=== PATIENT | male | born 1980 | race African-American/Black ===

== ENCOUNTER 2016-07-25 13:41 | Inpatient (IN) | payer OTHER ==
--- NOTE | ~2016-07-25 | PA ---
Unit #: [id number] #: [id number] Patient: DINA MITCHELL JR [id number] [facility] [address] [place] [address] [id number] I MR#: [id number] NAME: DINA MITCHELL JR ROOM: [facility] Age: 36 Sex: M Admission Date: 07/25/2016 : 1980 Date of Assessment: 07/25/2016 Attending Physician: Patel Florence M.D. Admitting Physician: Patel Florence M.D. Primary Care Physician: Generic Doctor Not In System PSYCHIATRIC ASSESSMENT DATE OF SERVICE 07/25/2016. IDENTIFYING DATA Mr. Mitchell is a 36-year-old single male who is a resident of [place], [place] and is known to us from previous encounter, was self-referred to the hospital. CHIEF COMPLAINT Anger and "I'm having suicidal thoughts." HISTORY OF PRESENT ILLNESS Mr. Mitchell is a 36-year-old male with a long history of chronic mental illness and has been diagnosed and treated for schizoaffective disorder, and has been few times, he comes in with increasing psychosis and agitation and aggression, and then creates lot of disturbance on the unit and at times, he has signed out against medical advice; however, he once again brought himself to the hospital reporting increasing depression, and was seen to be loud, agitated, irritable, and acutely psychotic, significant paranoia, delusional behavior, and also expressing some suicidal thoughts and was seen to be danger to self and therefore recommendation for inpatient level of care for safety and stabilization was made. SUBSTANCE ABUSE HISTORY The patient has history of substance abuse including cocaine, but denies any current regular drug abuse. PAST PSYCHIATRIC HISTORY The patient has had history of multiple inpatient psychiatric hospitalizations including being at [facility] and few other facilities and has history of poor compliance with treatment recommendation as I mentioned earlier that he comes into the hospital and signs out against medical advice, but he came back to the hospital and usually his motivation towards treatment is unclear as he does not cooperate and participate with treatment recommendation and definitely does not follow up with outpatient psychiatric treatment after discharge from the hospital neither does he bother to get his prescription filled, and at least a rapid decompensation; however, review of the medical records indicate that he has been on different psychotic medications and more recently, he was on Zyprexa, which once again review the medical records indicate that he is supposed to be on 10 mg b.i.d., but he has not been compliant with medications. Unit #: [id number] #: [id number] Patient: DINA MITCHELL JR PAST MEDICAL HISTORY The patient's medical history is insignificant. ALLERGIES Aspirin, ibuprofen, and Tylenol. PERSONAL AND SOCIAL HISTORY A 36-year-old male who reports that he is single, unemployed, and essentially homeless and has poor social support system. MENTAL STATUS EXAMINATION Young male who was casually dressed with fair personal hygiene, appears to be in no acute distress or discomfort. He was awake and alert with impaired attention and concentration. His mood was anxious with a congruent affect. His speech was slow and restricted in content. His thought processes were disorganized with some looseness of associations and paranoid ideations, and delusional behavior. His insight and judgment remain significantly impaired. DIAGNOSTIC IMPRESSION Psychiatric: Schizoaffective disorder, bipolar type, most recent episode depressed, recurrent, moderate, with psychosis. Medical: None. Stressors: Moderate psychosocial stressors. TREATMENT PLAN 1. The patient has presented with history of chronic mental illness and has been decompensating and will need inpatient hospitalization for safety and stabilization. We will start him back on his home medications. We will consider switching him on his medication and consider him to be a candidate for long-acting injectable antipsychotic, primarily due to his history of poor compliance with medication leading to rapid decompensation and rehospitalization; however, I am not sure if I will be up for my recommendation for that and I am not sure if he is going to stay hence the hospital long enough for me to complete after that treatment of long-acting and antipsychotic to be initiated after ruling out hypersensitivity molecule of oral medication, however, likely to make effort and was strongly recommend for patient to comply with treatment recommendation. 2. Supportive therapy was provided to the patient. ESTIMATED LENGTH OF STAY 5 to 7 days. ABILITY TO HELP SELF Limited. WILLINGNESS TO HELP SELF The patient appears to be willing to help self. STRENGTHS 1. Communicative. 2. Cooperative. PROBLEMS 1. Chronic dysphoric symptoms. 2. Poor social support system. Unit #: [id number] #: [id number] Patient: DINA MITCHELL DISCHARGE CRITERIA This will be contingent upon the patient's ability to show resolution of his depression, psychosis, agitation, and aggression as well as his ability to stay safe to himself and others, particularly after discharge from the hospital. Dictated by... Marcus Peña/trish TD: 07/26/2016 16:15 JOB #: [id number] PSYCHIATRIC ASSESSMENT Page 1 of 1 X Patel Florence MD X PSYCHIATRIC ASSESSMENT
--- NOTE | ~2016-07-25 | PN ---
Unit #: [id number] #: [id number] Patient: DINA MORALES JR [id number] [facility] [address] [place] [address] [id number] I MR#: [id number] NAME: DINA MORALES JR ROOM: [facility] Age: 36 Sex: M Admission Date: 07/25/2016 : 1980 Attending Physician: Patel Florence M.D. Admitting Physician: Patel Florence M.D. Primary Care Physician: Estrella Doctor Not In System [facility] PROGRESS NOTES DATE July 27, 2016 DISCUSSION Mr. Morales is a 36-year-old male, who was seen today and chart was reviewed and the case was discussed with the staff. He has been anxious, withdrawn, and rather seclusive to himself. Meanwhile, he has been cooperative with the treatment recommendations and he has been taking the medications and tolerating them fairly well with no reported side effects. MENTAL STATUS EXAMINATION Young male, who was casually dressed with fair personal hygiene and appears to be in no acute distress or discomfort. He was awake and alert with impaired attention and concentration. His mood is anxious with a congruent affect. His speech is slow and restricted in content. His thought processes are disorganized with some looseness of associations. His insight and judgment remain significantly impaired. TREATMENT PLAN 1. We will continue him on his current medications and treatment protocol, and will discontinue the medication as he is refusing to take that particular medication and he is reporting that it don't work and will switch him to Abilify. 2. We will continue to followup. Dictated by... Marcus Peña/marsha TD: 07/28/2016 10:53 JOB #: [id number] Unit #: [id number] #: [id number] Patient: DINA MORALES JR [facility] PROGRESS NOTES Page 1 of 1 X Patel Florence MD PROGRESS NOTE
--- NOTE | ~2016-07-25 | PN ---
Unit #: [id number] #: [id number] Patient: DINA MORALES JR [id number] [facility] [address] [place] [address] [id number] I MR#: [id number] NAME: DINA MORALES JR ROOM: [facility] Age: 36 Sex: M Admission Date: 07/25/2016 : 1980 Attending Physician: Patel Florence M.D. Admitting Physician: Patel Florence M.D. Primary Care Physician: Generic Doctor Not In System [facility] PROGRESS NOTES DATE 07/26/2016 DISCUSSION Mr. Morales is a 36-year-old male who was seen today and chart was reviewed and case was discussed with the staff. He was seen to be anxious, withdrawn and rather seclusive to himself with blunted affect and minimal interaction and has been exhibiting some depressive symptoms. Meanwhile, he has been cooperative with treatment recommendations and has been taking medications and tolerating them fairly well. MENTAL STATUS EXAMINATION Young male who was casually dressed with fair personal hygiene and appears to be in no acute distress or discomfort. He was awake and alert with impaired attention and concentration. His mood was anxious with congruent affect. His speech is slow and tangential. His thought processes were disorganized with some looseness of association, thought blocking and paranoid ideations. His insight and judgement remains significantly impaired. TREATMENT PLAN 1. Will continue him on his current medications and treatment protocol. Will monitor his response and make further adjustments as needed. 2. Will continue to follow up. Dictated by... Marcus Peña/madyson TD: 07/27/2016 18:38 JOB #: [id number] Unit #: [id number] #: [id number] Patient: DINA MORALES JR [facility] PROGRESS NOTES Page 1 of 1 X Patel Florence MD PROGRESS NOTE
--- NOTE | ~2016-07-25 | CO ---
Unit #: [id number] #: [id number] Patient: DINA MITCHELL JR [id number] [place] [address] [id number] I MR#: [id number] NAME: DINA MITCHELL JR ROOM: [facility] Age: 36 Sex: M Admission Date: 07/25/2016 : 1980 Attending Physician: Patel Florence M.D. Primary Care Physician: Estrella Doctor Not In System Consultation Date: 07/25/2016 CONSULTATION REPORT SUBJECTIVE Dnia is a 36-year-old who reports that he had a TB skin test sometime prior to this admission. The test was read by appropriate medical concierge and was read as negative. At the time of admission, the admitting nurse noticed a red raised area on his forearm that coincided with the TB skin test that he reported. She was concerned that this may be positive now. At time of admission, it would have been 5 to 6 days since he had the TB skin test and he did report that the area itched somewhat and he scratched it. OBJECTIVE GENERAL: Alert, well nourished, in no apparent distress. VITAL SIGNS: Blood pressure 120/70, heart rate 80, respirations 16, temperature 98.6. SKIN: Warm and dry without rash or lesion. He has approximately quarter-sized raised area on his forearm. The area is not warm or tender. ASSESSMENT Secondary irritation where the patient has scratched after a TB skin test that was read negative at the appropriate time. PLAN No Rx. Dictated by... Beryl Gunn P.A.-C. for Marcus Villalobos/trish TD: 07/28/2016 00:49 JOB #: [id number] Unit #: [id number] #: [id number] Patient: DINA MITCHELL JR CONSULTATION REPORT Page 1 of 1 X Beryl Gunn CONSULTATION REPORT
--- NOTE | ~2016-07-25 | HP ---
Unit #: [id number] #: [id number] Patient: DINA MITCHELL JR [id number] [place] [address] [id number] I MR#: [id number] NAME: DINA MITCHELL JR ROOM: [facility] Age: 36 Sex: M Admission Date: 07/25/2016 : 1980 Attending Physician: Patel Florence M.D. Admitting Physician: Patel Florence M.D. Primary Care Physician: Generic Doctor Not In System HISTORY AND PHYSICAL HISTORY OF PRESENT ILLNESS Dina is a 36 year old admitted to [address] [place] [address] after reporting auditory hallucinations. He says "I think I'm having a nervous breakdown." PAST MEDICAL HISTORY Nothing significant. PAST SURGICAL HISTORY Nothing reported. ALLERGIES Aspirin, Tylenol, ibuprofen. SOCIAL HISTORY Smokes less than one-half pack per day. Denies alcohol. Admits to using marijuana "occasionally." FAMILY HISTORY Medically noncontributory. REVIEW OF SYSTEMS CONSTITUTIONAL: No fever or chills. HEENT: Denies any sore throat, ear pain or runny nose. CARDIOVASCULAR: Denies chest pain, irregular heart rhythm or palpitations. CHEST: Denies shortness of breath or cough. No hemoptysis. GASTROINTESTINAL: Denies nausea, vomiting, diarrhea or chronic constipation. ENDOCRINE: Denies history of increased thirst or urination. No recent significant weight loss or gain. GENITOURINARY: Denies dysuria, frequency, or hematuria. SKIN: Denies any rashes. HEMATOLOGIC: Denies history of increased bleeding or bruising. MUSCULOSKELETAL: Denies any hot, swollen joints. No generalized muscle pain. NEUROLOGIC: Denies problems with vision or speech. No frequent, severe headaches. No numbness, tingling or weakness in any extremities. Denies loss of bladder or bowel control. CURRENT MEDICATIONS 1. Risperdal 1 mg b.i.d. 2. Celexa 20 mg q. day. 3. Proventil inhaler p.r.n. 4. Milk of Magnesia p.r.n. Unit #: [id number] #: [id number] Patient: DINA MITCHELL JR 5. Maalox p.r.n. 6. Zyprexa 10 mg b.i.d. PHYSICAL EXAMINATION GENERAL: Alert, well nourished. No apparent distress. VITAL SIGNS: Blood pressure 120/70, heart rate 82, respirations 16, and temperature 98.6. WEIGHT: 151. HEIGHT: 5 feet 9 inches. SKIN: Warm and dry without rash or lesion. HEENT: Normocephalic. TMs not viewed. Oral and nasal passages clear. Conjunctivae clear. PERRLA. EOMs intact. NECK: Supple without lymphadenopathy or thyromegaly. HEART: Regular rate and rhythm without murmur. LUNGS: Clear. ABDOMEN: Soft, nontender. : Not done. EXTREMITIES: No evidence of cyanosis, clubbing or edema. Moves all without focal deficit. NEUROLOGICAL: Grossly within normal limits. Cranial Nerves: II: Visual mejia are intact. III, IV AND : Extraocular movements are intact. Pupils are equal, round and reactive to light. V: Facial sensation is grossly normal. VII: Facial movements and expression are normal. VIII: Auditory acuity grossly intact. IX, X: Uvula is midline. Phonation is normal. XI: Patient shrugs shoulders and turns head normally. XII: Tongue protrudes in the midline. Sensory and Motor Function: Sensory and motor sensation is grossly normal. Motor: moves all extremities well. Coordination: Gait is normal. Deep Tendon Reflexes: Intact. IMPRESSION Psychiatric admission. RECOMMENDATIONS PSYCHIATRIC: Per psychiatrist. MEDICAL: I see no contraindication to participate in this facility's activities. MEDICAL PROGNOSIS Good. MEDICAL CONDITION Stable. Dictated by... Beryl Gunn P.A.-C. for Marcus Villalobso/xochitl TD: 07/26/2016 10:52 JOB #: [id number] Unit #: [id number] #: [id number] Patient: DINA MITCHELL JR HISTORY AND PHYSICAL Page 1 of 1 X Beryl Gunn HISTORY AND PHYSICAL
--- NOTE | ~2016-07-25 | DS ---
Unit #: [id number] #: [id number] Patient: [facility] MITCHE[facility] JR [id number] [facility] [address] [place] [address] [id number] I MR#: [id number] NAME: DINA MITCHELL JR ROOM: [facility] Age: 36 Sex: M Admission Date: 07/25/2016 : 1980 Discharge Date: 07/29/2016 Attending Physician: Patel Florence M.D. Primary Care Physician: Generic Doctor Not In System DISCHARGE SUMMARY IDENTIFYING DATA Mr. Mitchell is a 36-year-old single male who is a resident of [place], [place] and is known to us from previous encounter, was self-referred to the hospital. DISCHARGE DIAGNOSES Psychiatric: Schizoaffective disorder, bipolar type, most recent episode depressed, recurrent, moderate, with psychosis. Medical: None. Stressors: Moderate psychosocial stressors. HISTORY OF PRESENT ILLNESS Please see initial psychiatric evaluation for details. PAST PSYCHIATRIC HISTORY Please see initial psychiatric evaluation for details. PAST MEDICAL HISTORY Please see initial psychiatric evaluation for details. HOSPITAL COURSE The patient was admitted to the adult psychiatric unit at [facility] and was oriented to the hospital environment. Routine p.r.n. medications were initiated, and he was started back on his home medications including his Celexa and Zyprexa and was closely monitored. He was initially seen to be very withdrawn, and rather seclusive to himself and exhibiting some acute psychosis; however, at this time he did not show any agitation or aggression, which has been hallmark of his previous presentation with seems to cooperative with treatment recommendation and was taking the medications regularly, and was tolerating them fairly well and was able to show a decent therapeutic response and as such, it was decided that he will be discharged home and will continue treatment on an outpatient basis. DISCHARGE MEDICATIONS Celexa 20 mg a day for depression and Zyprexa 10 mg b.i.d. for psychosis. DISCHARGE CONDITION Stable. PROGNOSIS Fair. Unit #: [id number] #: [id number] Patient: DINA MITCHELL JR Dictated by... Marcus Peña/rosa iselal TD: 07/29/2016 16:55 JOB #: [id number] DISCHARGE SUMMARY Page 1 of 1 X Patel Florence MD DISCHARGE SUMMARY
--- NOTE | ~2016-07-25 | PN ---
Unit #: [id number] #: [id number] Patient: DINA MORALES JR [id number] [facility] [address] [place] [address] [id number] I MR#: [id number] NAME: DINA MORALES JR ROOM: [facility] Age: 36 Sex: M Admission Date: 07/25/2016 : 1980 Attending Physician: Patel Florence M.D. Admitting Physician: Patel Florence M.D. Primary Care Physician: Generic Doctor Not In System [facility] PROGRESS NOTES DATE July 28, 2016 DISCUSSION Mr. Morales is a 36-year-old male, who was seen today and chart was reviewed and the case was discussed with the staff. He has been anxious, withdrawn, and wants to get back on his Zyprexa. Meanwhile, he has been staying calm and hasn't had any agitation or aggression. MENTAL STATUS EXAMINATION Young male, who was casually dressed with fair personal hygiene and appears to be in no acute distress or discomfort. He was awake and alert on interaction with intact orientation. His mood is anxious with a congruent affect. His speech is slow and restricted in content. He denies any suicidal or homicidal ideations. His insight and judgment remain significantly impaired. TREATMENT PLAN 1. We will continue him on his current medications and treatment protocol, and will monitor his response to the medications, and make further adjustments as needed. 2. We will continue to followup. Dictated by... Marcus Peña/marsha TD: 07/28/2016 11:01 JOB #: [id number] Unit #: [id number] #: [id number] Patient: DINA MORALES JR [facility] PROGRESS NOTES Page 1 of 1 X Patel Florence MD X PROGRESS NOTE
[2016-07-28 10:41] LABS: URINE APPEARANCE CLEAR; URINE BILIRUBIN NEG (NEG); URINE BLOOD NEG (NEG); URINE COLOR YELLOW; URINE GLUCOSE NEG (NEG); URINE KETONE NEG (NEG); URINE LEUKOCYTE ESTERASE NEG (NEG); URINE NITRATE NEG (NEG); URINE PROTEIN NEG (NEG); URINE SPECIFIC GRAVITY 1.022 (1.003-1.035); URINE UROBILINOGEN 0.2 MG/DL (NEG)
[2016-07-28 11:00] LABS: AMPHETAMINE NEG (NEG); BARBITURATES NEG (NEG); BENZODIAZEPINES NEG (NEG); COCAINE NEG (NEG); MARIJUANA POS (NEG); OPIATES NEG (NEG); TRICYCLIC ANTIDEPRESSANTS NEG (NEG); U METHADONE NEG (NEG)
== END 2016-07-29 10:45 | disposition home or self-care (01) | DRG 885 ==
LOC: P2L 13:41
PROVIDERS: Psychiatry & Neurology Psychiatry
DX: F25.0 Schizoaffective disorder, bipolar type (principal); F31.32 Bipolar disorder, current episode depressed, moderate; F17.210 Nicotine dependence, cigarettes, uncomplicated
CPT/HCPCS: 80307; 81003

== ENCOUNTER 2016-08-12 18:11 | Inpatient (IN) | payer OTHER ==
--- NOTE | ~2016-08-12 | PN ---
Unit #: [id number] #: [id number] Patient: DINA MORALES JR [id number] [facility] [address] [place] [address] [id number] I MR#: [id number] NAME: DINA MORALES JR ROOM: [facility] Age: 36 Sex: M Admission Date: 08/12/2016 : 1980 Attending Physician: Patel Florence M.D. Admitting Physician: Patel Florence M.D. Primary Care Physician: Generic Doctor Not In System [facility] PROGRESS NOTES DATE 08/18/2016 DISCUSSION Mr. Morales is a 36-year-old male who was seen today and chart was reviewed and case was discussed with the staff. He has been doing fairly well and has been reporting improvement in depression and anxiety and he has been cooperative with treatment recommendations and has been taking the medications and tolerating them fairly well. MENTAL STATUS EXAMINATION Young male who was casually dressed with fair personal hygiene and appears to be in no acute distress or discomfort. He was awake and alert on interaction with intact orientation. His mood was anxious with congruent affect. His speech is slow and goal-directed. He denies any suicidal or homicidal ideations and also denies any auditory or visual hallucinations. His insight and judgement remains slightly impaired. TREATMENT PLAN Will continue on current medications and treatment protocol. Will monitor his response and make further adjustments as needed. Dictated by... Marcus Peña/madyson TD: 08/18/2016 18:18 JOB #: [id number] Unit #: [id number] #: [id number] Patient: DINA MORALES JR [facility] PROGRESS NOTES Page 1 of 1 X Patel Florence MD X PROGRESS NOTE
--- NOTE | ~2016-08-12 | PN ---
Unit #: [id number] #: [id number] Patient: DINA MORALES JR [id number] [facility] [address] [place] [address] [id number] I MR#: [id number] NAME: DINA MORALES JR ROOM: [facility] Age: 36 Sex: M Admission Date: 08/12/2016 : 1980 Attending Physician: Patel Florence M.D. Admitting Physician: Patel Florence M.D. Primary Care Physician: Estrella Doctor Not In System [facility] PROGRESS NOTES DATE 08/17/2016 DISCUSSION Mr. Morales is a 36-year-old male who was seen today and chart was reviewed and case was discussed with the staff. He has been anxious, agitated, irritable, impulsive and oppositional. Meanwhile, he has been compliant with treatment recommendations and has been taking medications and tolerating them fairly well with no reported side effects. MENTAL STATUS EXAMINATION Young male who was casually dressed with fair personal hygiene and appears to be in no acute distress or discomfort. He was awake and alert on interaction with intact orientation. His mood was anxious and depressed with congruent affect. He denies any suicidal or homicidal ideations. His insight and judgement remains slightly impaired. TREATMENT PLAN 1. Will continue his current medications and treatment protocol. Will monitor his response to medications and make further adjustments as needed. 2. Will continue to follow up. Dictated by... Patel Florence M.D. IAA/madyson TD: 08/17/2016 17:27 JOB #: [id number] Unit #: [id number] #: [id number] Patient: DNIA MORALES JR [facility] PROGRESS NOTES Page 1 of 1 X Patel Florence MD PROGRESS NOTE
--- NOTE | ~2016-08-12 | PA ---
Unit #: [id number] #: [id number] Patient: DINA MITCHELL JR [id number] [facility] [address] [place] [address] [id number] I MR#: [id number] NAME: DINA MITCHELL JR ROOM: P121 Age: 36 Sex: M Admission Date: 08/12/2016 : 1980 Date of Assessment: 08/13/2016 Attending Physician: Patel Florence M.D. Admitting Physician: Patel Florence M.D. Primary Care Physician: Generic Doctor Not In System PSYCHIATRIC ASSESSMENT IDENTIFYING INFORMATION The patient is a 36-year-old male admitted to the [address] [place] [address] unit under the care of Dr. Florence. He is seen today in coverage and Dr. Florence will assume care tomorrow. CHIEF COMPLAINT None given INFORMANT The patient and chart. RELIABILITY Fair. HISTORY OF PRESENT ILLNESS The patient is a 36-year-old male last discharged from this facility on 07/29/2016. The patient carries a diagnosis of chronic paranoid schizophrenia. He claims that he has been compliant with prescribed medications. The patient reports today that he has been compliant with medications. He required a p.r.n. dose of Haldol, Ativan and Benadryl yesterday. The patient was reporting recurrence of auditory hallucinations. He terminates today's interview by rising from his bed and walking into the bathroom. He was reporting positive auditory hallucinations and suicidal ideation at the time of admission. For a more complete history of present illness please refer to previous dictated notes. PAST PSYCHIATRIC HISTORY Reviewed no changes. PAST MEDICAL HISTORY Reviewed no changes. MEDICATIONS 1. Celexa 2. Zyprexa 3. Albuterol ALLERGIES Acetaminophen, ibuprofen, aspirin. FAMILY HISTORY Reviewed no changes Unit #: [id number] #: [id number] Patient: DINA MITCHELL JR SOCIAL HISTORY Reviewed no changes MENTAL STATUS EXAMINATION At this time reveals the patient to be a well-developed, well-nourished male, appearing his stated age. He is in no apparent physical distress at the time of examination. He is awake, alert, and oriented in all spheres. His mood is somewhat irritable. His affect constricted. Speech is generally relevant and coherent. There are no gross deficits in memory or cognition noted. Intelligence is judged to be in the average range based on fund of knowledge. The patient is generally cooperative during interview. He continues to endorse positive suicidal ideation. When seen today he denies homicidal ideation. He reports positive auditory hallucinations. His judgement and insight appear to be somewhat impaired. ASSETS AND LIABILITIES ASSETS: To be assessed. LIABILITIES: Poor compliance of treatment. DIAGNOSTIC IMPRESSION Schizoaffective disorder, asthma. PSYCHIATRIC PLAN/TREATMENT GOALS The patient remains hospitalized for safety and stabilization. We will restart previously prescribed medications and Dr. Florence will assume care of the patient on 08/14/2016. Dictated by... Jeremy Chávez M.D. CARLEE/daa TD: 08/14/2016 04:15 JOB #: [id number] PSYCHIATRIC ASSESSMENT Page 1 of 1 X Jeremy Chávez MD X PSYCHIATRIC ASSESSMENT
--- NOTE | ~2016-08-12 | PN ---
Unit #: [id number] #: [id number] Patient: DINA MORALES JR [id number] [facility] [address] [place] [address] [id number] I MR#: [id number] NAME: DINA MORALES JR ROOM: P121 Age: 36 Sex: M Admission Date: 08/12/2016 : 1980 Attending Physician: Patel Florence M.D. Admitting Physician: Patel Florence M.D. Primary Care Physician: Estrella Doctor Not In System [facility] PROGRESS NOTES DATE OF SERVICE: 08/15/2016 SUBJECTIVE Mr. Morales is a 36-year-old male, who was seen today and chart was reviewed, and case was discussed with the staff. He has been anxious, withdrawn, and rather seclusive to himself. Meanwhile, he has been cooperative with treatment recommendations and has been taking the medications and tolerating them fairly well with no reported side effects. MENTAL STATUS EXAMINATION Young male, who was casually dressed with fair personal hygiene, appears to be in no acute distress or discomfort. He was awake and alert on interaction with intact orientation. His mood was anxious and depressed with a congruent affect. He denies any suicidal or homicidal ideations. His thought processes were disorganized with some looseness of associations. His insight and judgment remain significantly impaired. TREATMENT PLAN 1. We will continue his current medications and treatment protocol. We will monitor his response to medications and make further adjustments as needed. 2. We will continue to follow up. Dictated by... Marcus Peña/trish TD: 08/16/2016 02:25 JOB #: [id number] Unit #: [id number] #: [id number] Patient: DINA MORALES JR [facility] PROGRESS NOTES Page 1 of 1 X Patel Florence MD PROGRESS NOTE
--- NOTE | ~2016-08-12 | HP ---
Unit #: [id number] #: [id number] Patient: DINA MITCHELL JR [id number] [facility] [address] [place] [address] [id number] I MR#: [id number] NAME: DINA MITCHELL JR ROOM: P121 Age: 36 Sex: M Admission Date: 08/12/2016 : 1980 Attending Physician: Patel Florence M.D. Admitting Physician: Patel Florence M.D. Primary Care Physician: Generic Doctor Not In System HISTORY AND PHYSICAL The patient is a 36-year-old male admitted to [address] [place] [address] on 08/12/2016 for psychosis. The patient had a recent admission on July 25, 2016 where a full history and physical was completed. That history and physical has been reviewed. No changes need to be made. Dictated by... Khanh Sainz/ada TD: 08/14/2016 00:00 JOB #: [id number] HISTORY AND PHYSICAL Page 1 of 1 X JJ DE LA TORRE APRN HISTORY AND PHYSICAL
--- NOTE | ~2016-08-12 | PN ---
Unit #: [id number] #: [id number] Patient: DINA MITCHELL JR [id number] [facility] [address] [place] [address] [id number] I MR#: [id number] NAME: DINA MITCHELL JR ROOM: P121 Age: 36 Sex: M Admission Date: 08/12/2016 : 1980 Attending Physician: Patel Florenec M.D. Admitting Physician: Patel Florence M.D. Primary Care Physician: Estrella Doctor Not In System [facility] PROGRESS NOTES DATE OF SERVICE: 08/14/2016 SUBJECTIVE Mr. Atwood is a 36-year-old male, who was seen today and chart was reviewed, and case was discussed with the staff. He has been anxious, withdrawn, and rather seclusive to himself. Meanwhile, he has been cooperative with treatment recommendations and has been taking medications and tolerating them fairly well with no reported side effects. MENTAL STATUS EXAMINATION Young male, who was casually dressed with fair personal hygiene, appears to be in no acute distress or discomfort. He was awake, alert on interaction with intact orientation. His mood was anxious with a congruent affect. He reports increased suicidal ideation, but denies any homicidal ideation. His insight and judgment remain significantly impaired. TREATMENT PLAN 1. We will continue the current medications and treatment protocol. We will monitor his response to medications and make further adjustments as needed. 2. We will continue to follow up. Dictated by... Marcus Peña/trish TD: 08/15/2016 05:14 JOB #: [id number] [facility] PROGRESS NOTES Page 1 of 1 X Patel Florence MD PROGRESS NOTE
--- NOTE | ~2016-08-12 | PN ---
Unit #: [id number] #: [id number] Patient: DINA MORALES JR [id number] [facility] [address] [place] [address] [id number] I MR#: [id number] NAME: DINA MORALES JR ROOM: P121 Age: 36 Sex: M Admission Date: 08/12/2016 : 1980 Attending Physician: Patel Florence M.D. Admitting Physician: Patel Florence M.D. Primary Care Physician: Estrella Doctor Not In System [facility] PROGRESS NOTES DATE 08/16/2016 DISCUSSION Mr. Morales is a 36-year-old, male who was seen today and chart was reviewed and case was discussed with the staff. He remains anxious, withdrawn though rather seclusive to himself. meanwhile, he has been cooperative with treatment recommendations. He has been taking the medication and tolerating them fairly well with no reported side effects. MENTAL STATUS EXAM Young male who was casually dressed with fair personal hygiene, appears to be in no acute distress or discomfort. He was awake and alert on interaction with intact orientation. His mood was anxious and depressed with congruent affect. His speech was slow and restricted in content. He reports having suicidal ideation but denies any homicidal ideation. His thought processes were disorganized with some looseness of associations and paranoid ideations. His insight and judgement remains slightly impaired. TREATMENT PLAN 1. We will continue him on his current medications and treatment protocol. We will monitor his response to the medications and make further adjustments as needed. 2. We will continue to follow up. Dictated by... Marcus Peña/ada TD: 08/17/2016 04:39 JOB #: [id number] Unit #: [id number] #: [id number] Patient: DINA MORALES JR [facility] PROGRESS NOTES Page 1 of 1 X Patel Florence MD PROGRESS NOTE
--- NOTE | ~2016-08-12 | DS ---
Unit #: [id number] #: [id number] Patient: DINA MITCHELL JR [id number] [facility] [address] [place] [address] [id number] I MR#: [id number] NAME: DINA MITCHELL JR ROOM: P121 Age: 36 Sex: M Admission Date: 08/12/2016 : 1980 Discharge Date: 08/19/2016 Attending Physician: Patel Florence M.D. Primary Care Physician: Generic Doctor Not In System DISCHARGE SUMMARY IDENTIFYING DATA Mr. Mitchell is a 36-year-old single male who is known to us from previous encounter and was self-referred to the hospital. DISCHARGE DIAGNOSES Psychiatric: Schizoaffective disorder, bipolar type, most recent episode depressed, recurrent, moderate, with psychosis; methamphetamine abuse, moderate. Medical: None. Stressors: Moderate psychosocial stressors. HISTORY OF PRESENT ILLNESS Please see initial psychiatric evaluation for details. PAST PSYCHIATRIC HISTORY Please see initial psychiatric evaluation for details. PAST MEDICAL HISTORY Please see initial psychiatric evaluation for details. HOSPITAL COURSE The patient was admitted to the adult psychiatric unit at [facility] and was oriented to the hospital environment. Routine p.r.n. medications were initiated, and he was started back on his home medications including his Zyprexa and Celexa; however, he was refusing to take Celexa stating that he is not depressed and was taking Zyprexa and was very withdrawn and seclusive to himself; however, he was cooperative with treatment recommendation. In comparison to the last few hospitalization, he did not show any agitation or aggression, hostility, and was rather very cooperative with treatment recommendation and was able to show a decent therapeutic response and was willing to continue treatment and stated that he has a court appointment on Sunday and therefore, he wanted to leave over the weekend and was denying any suicidal ideations, intent, or plan and was not seen to be danger to self or anyone else, and as such, it was decided that he will be discharged home and will continue treatment on an outpatient basis. DISCHARGE MEDICATIONS Zyprexa 10 mg b.i.d. for mood disorder. DISCHARGE CONDITION Stable. PROGNOSIS Fair. Unit #: [id number] #: [id number] Patient: DINA MITCHELL JR Dictated by... Marcus Peña/trish TD: 08/19/2016 14:19 JOB #: [id number] DISCHARGE SUMMARY Page 1 of 1 X Patel Florence MD DISCHARGE SUMMARY
== END 2016-08-19 10:07 | disposition home or self-care (01) | DRG 885 ==
LOC: P1S 18:11
DX: F25.9 Schizoaffective disorder, unspecified (principal); F33.1 Major depressive disorder, recurrent, moderate; F15.20 Other stimulant dependence, uncomplicated; J45.909 Unspecified asthma, uncomplicated
CPT/HCPCS: J1200; J1630; J2060

== ENCOUNTER 2016-09-18 14:00 | Inpatient (IN) | payer OTHER ==
--- NOTE | ~2016-09-18 | PN ---
Unit #: [id number] #: [id number] Patient: DINA MORALES JR [id number] [facility] [address] [place] [address] [id number] I MR#: [id number] NAME: DINA MORALES JR ROOM: P131 Age: 36 Sex: M Admission Date: 09/18/2016 : 1980 Attending Physician: Patel Florence M.D. Admitting Physician: Patel Florence M.D. Primary Care Physician: Estrella Doctor Not In System [id number] PROGRESS NOTES DATE OF SERVICE 09/20/2016 DISCUSSION Mr. Morales is a 36-year-old male who was seen today. Chart was reviewed and case was discussed with the staff. He has been anxious, withdrawn, and rather seclusive to himself. Meanwhile, he has been cooperative with the treatment recommendations and has been taking the medications and tolerating them fairly well with no reported side effects. MENTAL STATUS EXAMINATION Young male who is casually dressed with fair personal hygiene, appears to be in no acute distress or discomfort. The patient was awake and alert with impaired attention and concentration. His mood is anxious with congruent affect. His speech is slow and restricted in content. His thought process is disorganized with some looseness of associations, thought-blocking, and paranoid ideations. His insight and judgment remain significantly impaired. TREATMENT PLAN 1. We will continue him on his current medications and treatment protocol. We will monitor his response to the medications and make further adjustments as needed. 2. We will continue to follow up. Dictated by... Marcus Peña/xochitl TD: 09/21/2016 10:40 JOB #: [id number] Unit #: [id number] #: [id number] Patient: DINA MORALES JR [facility] PROGRESS NOTES Page 1 of 1 X Patel Florence MD PROGRESS NOTE
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
--- NOTE | ~2016-09-18 | DS ---
Unit #: [id number] #: [id number] Patient: DINA MITCHELL JR [id number] [facility] [address] [place] [address] [id number] I MR#: [id number] NAME: DINA MITCHELL JR ROOM: [facility] Age: 36 Sex: M Admission Date: 09/18/2016 : 1980 Discharge Date: 09/20/2016 Attending Physician: Patel Florence M.D. Primary Care Physician: Generic Doctor Not In System DISCHARGE SUMMARY IDENTIFYING DATA Mr. Mitchell is a 36-year-old single male with mood disorder, who is known to us from previous encounter and was self-referred to the hospital. DISCHARGE DIAGNOSES Psychiatric: Bipolar disorder, recent episode, depressed, recurrent, moderate without psychotic features; cocaine dependence, moderate; and methamphetamine abuse, moderate. Medical: None. Stressors: Moderate psychosocial stressors. HISTORY OF PRESENT ILLNESS Please see initial psychiatric evaluation for details. PAST PSYCHIATRIC HISTORY Please see initial psychiatric evaluation for details. PAST MEDICAL HISTORY Please see initial psychiatric evaluation for details. HOSPITAL COURSE The patient was admitted to the adult psychiatric unit at [facility] and was oriented to the hospital environment. Routine p.r.n. medications were initiated. He was started back on his home medications, however, soon afterwards he once again decided to leave against medical advice which has been had quite typical pattern of presentation and was denying any suicidal ideations, with intent or plan and was not meeting criteria for involuntary psychiatric hospitalization and as such, it was decided that he will be discharged home and will continue treatment on outpatient basis. DISCHARGE CONDITION Stable. PROGNOSIS Guarded. Dictated by... Marcus Peña/rosa iselal Unit #: [id number] #: [id number] Patient: DINA MITCHELL JR TD: 10/03/2016 23:10 JOB #: [id number] DISCHARGE SUMMARY Page 1 of 1 X Patel Florence MD X DISCHARGE SUMMARY
--- NOTE | ~2016-09-18 | HP ---
Unit #: [id number] #: [id number] Patient: DINA MITCHELL JR [id number] [place] [address] [id number] I MR#: [id number] NAME: DINA MITCHELL JR ROOM: P131 Age: 36 Sex: M Admission Date: 09/18/2016 : 1980 Attending Physician: Patel Florence M.D. Admitting Physician: Patel Florence M.D. Primary Care Physician: Generic Doctor Not In System HISTORY AND PHYSICAL HISTORY OF PRESENT ILLNESS Dina is a 36 year old admitted to [facility] with psychotic behavior. He is a poor historian so his history is taken from his chart. He has had other admissions to this facility for the same. PAST MEDICAL HISTORY Nothing significant. PAST SURGICAL HISTORY Nothing reported. ALLERGIES Aspirin, Tylenol, ibuprofen. SOCIAL HISTORY Smokes 1/2 pack per day. Denies alcohol. Admits to marijuana use. FAMILY HISTORY Medically noncontributory. REVIEW OF SYSTEMS He does not answer any questions appropriately. There were no reports of nausea, vomiting or diarrhea. He has had no cough or increased temperature. CURRENT MEDICATIONS 1. Zyprexa 10 mg b.i.d. 2. Proventil inhaler p.r.n. 3. Milk of Magnesia p.r.n. 4. Maalox p.r.n. PHYSICAL EXAMINATION GENERAL: Alert, well-nourished, in no apparent distress. VITAL SIGNS: Blood pressure 110/76, heart rate 56, respirations 16, temperature 98.6. WEIGHT: 156. HEIGHT: 5 feet 9 inches. SKIN: Warm and dry without rash or lesion. HEENT: Normocephalic. TMs not viewed. Oral and nasal passages clear. Conjunctivae clear. PERRLA. EOMs intact. NECK: Supple without lymphadenopathy or thyromegaly. HEART: Regular rate and rhythm without murmur. LUNGS: Clear. Unit #: [id number] #: [id number] Patient: DINA MITCHELL JR ABDOMEN: Soft, nontender. : Not done. EXTREMITIES: No evidence of cyanosis, clubbing or edema. Moves all without focal deficit. NEUROLOGICAL: Unable to complete extended exam. He does move all extremities without focal deficit. Hand adult school teacher is equal and gait is normal. IMPRESSION Psychiatric admission. RECOMMENDATIONS PSYCHIATRIC: Per psychiatrist. MEDICAL: See no contraindications to participate in facility's activities. MEDICAL PROGNOSIS Good. MEDICAL CONDITION Stable. Dictated by... Beryl Gunn P.A.-C. for Marcus Villalobos/madyson TD: 09/19/2016 16:37 JOB #: [id number] HISTORY AND PHYSICAL Page 1 of 1 X Beryl Gunn X HISTORY AND PHYSICAL
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
== END 2016-09-20 17:11 | disposition home or self-care (01) | DRG 885 ==
LOC: P1S 16:59
DX: F31.2 Bipolar disorder, current episode manic severe with psychotic features (principal); F14.20 Cocaine dependence, uncomplicated; J45.909 Unspecified asthma, uncomplicated
CPT/HCPCS: J3230

== ENCOUNTER 2016-10-12 15:44 | Inpatient (IN) | payer OTHER ==
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
--- NOTE | ~2016-10-12 | PN ---
Unit #: [id number] #: [id number] Patient: DINA MORALES JR [id number] [facility] [address] [place] [address] [id number] MR#: [id number] NAME: DINA MORALES JR ROOM: P121 Age: 36 Sex: M Admission Date: 10/12/2016 : 1980 Attending Physician: Patel Florence M.D. Admitting Physician: Patel Florence M.D. Primary Care Physician: Generic Doctor Not In System [facility] PROGRESS NOTES DATE October 14, 2016 DISCUSSION Mr. Morales is a 36-year-old male, who was seen today and chart was reviewed and the case was discussed with the staff. He has been agitated and irritable, and hostile and has been acutely psychotic with significant paranoia and delusional behavior and staff reported that he had been quite volatile though he has been taking the medications and adjusting it, he said that he has not had time to respond to the medications. MENTAL STATUS EXAMINATION Young male, who was casually dressed with fair personal hygiene and appears to be in no acute distress or discomfort. He was awake and alert on interaction with intact orientation. His mood is anxious with a congruent affect. He denies any suicidal or homicidal ideations. His thought processes are disorganized with some looseness of associations and flight of ideas, paranoid ideations, and delusional behavior. His insight and judgment remain significantly impaired. TREATMENT PLAN 1. We will continue him on his current medications and treatment protocol, and will monitor his response, and make further adjustments as needed. 2. We will continue to followup. Dictated by... Marcus Peña/marsha TD: 10/16/2016 07:30 JOB #: [id number] Unit #: [id number] #: [id number] Patient: IDNA MORALES JR [facility] PROGRESS NOTES Page 1 of 1 X Patel Florence MD PROGRESS NOTE
--- NOTE | ~2016-10-12 | PA ---
Unit #: [id number] #: [id number] Patient: DINA MITCHELL JR [id number] [facility] [place] [address] [id number] I MR#: [id number] NAME: DINA MITCHELL JR ROOM: P132 Age: 36 Sex: M Admission Date: 10/12/2016 : 1980 Date of Assessment: 10/12/2016 Attending Physician: Patel Florence M.D. Admitting Physician: Patel Florence M.D. Primary Care Physician: Generic Doctor Not In System PSYCHIATRIC ASSESSMENT DATE OF SERVICE 10/12/2016. IDENTIFYING DATA Mr. Mitchell is a 36-year-old, single, male, who is a resident of [place], [place], and is known to us from previous multiple encounters with chronic mental illness, and was self-referred to the hospital on a voluntary basis. 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 Mitchell is a 35-year-old, male, [facility] and was seen to be once again as usual and typical, loud, belligerent, hostile and reports that he has not been taking his medication and has been experiencing significant mood swings, and was seen to be very paranoid, agitated, and irritable, and reports having auditory hallucinations, which are command in nature and stated the voices have been telling him "the system ain't right." He reports suicidal ideation with plan to kill himself in "any way I can." He reports that he has been having thoughts of shooting himself with a gun and denied any homicidal ideation, though had a long history of chronic mental illness with extensive history of poor compliance, violent outbursts, agitation, aggression and was seen to be danger to self and others and as such, recommendation for inpatient level of care for safety and stabilization was made and the patient was transferred to us. SUBSTANCE ABUSE HISTORY The patient reports history of experimentation with cannabis in the past, but denies any current substance abuse. PAST PSYCHIATRIC HISTORY The patient has had a history of numerous inpatient psychiatric hospitalizations at [facility] in addition to being at [facility], and has had outpatient treatment briefly in the past, but has a history of poor compliance with treatment recommendations and review of the medical records indicate that currently he is supposed to be on Zyprexa, but has been noncompliant with medication and as such, has been decompensating. PAST MEDICAL HISTORY Asthma. Unit #: [id number] #: [id number] Patient: DINA MITCHELL JR ALLERGIES Tylenol, aspirin, Motrin. PERSONAL AND SOCIAL HISTORY A 35-year-old male, who reports that he is single, unemployed, and essentially homeless and has poor social support system. MENTAL STATUS EXAMINATION Young male, who was casually dressed with fair personal hygiene, appears to be in no acute distress or discomfort. He was awake and alert on interaction with intact orientation. His mood was anxious and depressed with a congruent affect. His speech was pressured and tangential. His thought processes were disorganized with some looseness of associations, flight of ideas, paranoid ideations and delusional behavior. His insight and judgment remain significantly impaired. DIAGNOSTIC IMPRESSION Psychiatric: Schizoaffective disorder, bipolar type, most recent episode manic with psychosis. Medical: Asthma. Stressors: Moderate psychosocial stressors. TREATMENT PLAN 1. The patient has presented with a history of mood disorder and psychosis and has been decompensating and will need inpatient hospitalization for safety and stabilization. We will start him back on his home medications. We will adjust the medications and monitor response. 2. Supportive therapy was provided to the patient. 3. Safe, structured, and nourishing environment will be provided. ESTIMATED LENGTH OF STAY 5 to 7 days. ABILITY TO HELP SELF Limited. WILLINGNESS TO HELP SELF The patient appears to be willing to help self. STRENGTHS 1. Communicative. 2. Cooperative. PROBLEMS 1. Chronic dysphoric symptoms. 2. Poor social support system. DISCHARGE CRITERIA This will be contingent upon the patient's ability to show resolution of his depression and psychosis as well as his ability to stay safe to himself, particularly after discharge from the hospital. Dictated by... Unit #: [id number] #: [id number] Patient: DINA MITCHELL Marcus Hutton/trish TD: 10/13/2016 06:39 JOB #: [id number] PSYCHIATRIC ASSESSMENT Page 1 of 1 X Patel Florence MD PSYCHIATRIC ASSESSMENT
--- NOTE | ~2016-10-12 | HP ---
Unit #: [id number] #: [id number] Patient: DINA MITCHELL JR [id number] [facility] [address] [place] [address] [id number] I MR#: [id number] NAME: DINA MITCHELL JR ROOM: P132 Age: 36 Sex: M Admission Date: 10/12/2016 : 1980 Attending Physician: Patel Florence M.D. Admitting Physician: Patel Florence M.D. Primary Care Physician: Generic Doctor Not In System HISTORY AND PHYSICAL HISTORY OF PRESENT ILLNESS Dina is a 36 year old, admitted to [address] [place] [address], with psychotic behavior. The patient was seen and history and physical, dated 09/19/2016 was reviewed. This is current. No changes. Please see history and physical, dated 09/19/2016. Dictated by... Beryl Gunn P.A.-C. for Marcus Villalobos/marsha TD: 10/13/2016 12:20 JOB #: [id number] HISTORY AND PHYSICAL Page 1 of 1 X Beryl Gunn HISTORY AND PHYSICAL
--- NOTE | ~2016-10-12 | PN ---
Unit #: [id number] #: [id number] Patient: DINA MORALES JR [id number] [facility] [address] [place] [address] [id number] I MR#: [id number] NAME: DINA MORALES JR ROOM: P121 Age: 36 Sex: M Admission Date: 10/12/2016 : 1980 Attending Physician: Patel Florence M.D. Admitting Physician: Patel Florence M.D. Primary Care Physician: Estrella Doctor Not In System [facility] PROGRESS NOTES DATE 10/13/2016 DISCUSSION Mr. Morales is a 36-year-old, male who was seen today and chart was reviewed and case was discussed with the staff. He has been anxious, withdrawn and rather seclusive to himself (1)____ has been seen to be agitated, irritable, yelling, cursing, screaming, call names to the staff using no respect and difficult to be redirected and also has been exhibiting some significant paranoia and delusional behavior and has been significant threat to himself and others. Meanwhile, medications were just initiated yesterday which it appears that he has been taking the medication and tolerating them fairly well. MENTAL STATUS EXAM Young male who was casually dressed with fair personal hygiene, appears to be in no acute distress or discomfort. He was awake and alert with impaired attention and concentration. His mood was anxious with congruent affect. His speech was slow and tangential. His thought processes were disorganized with some looseness of associations and flight of ideas and paranoid ideations and delusional behavior. His insight and judgement is significantly impaired. TREATMENT PLAN 1. We will continue him on his current medications and treatment protocol. We will monitor his response to the medication and make further adjustments as needed. 2. We will continue to follow up. Dictated by... Marcus Peña/ada TD: 10/16/2016 02:32 JOB #: [id number] Unit #: [id number] #: [id number] Patient: DINA MORALES JR [facility] NOTES Page 1 of 1 X Patel Florence MD NOTE
== END 2016-10-15 10:07 | disposition home or self-care (01) | DRG 885 ==
LOC: POF 17:12 → P1S 17:12
DX: F25.0 Schizoaffective disorder, bipolar type (principal); F17.210 Nicotine dependence, cigarettes, uncomplicated; Z88.6 Allergy status to analgesic agent

== ENCOUNTER 2016-11-09 22:00 | Inpatient (IN) | payer OTHER ==
[~2016-11-09] VITALS: Ht 175.3 cm; Wt 69.4 kg
--- NOTE | ~2016-11-09 | HP ---
Unit #: [id number] #: [id number] Patient: DINA MITCHELL JR [id number] [place] [address] [id number] I MR#: [id number] NAME: DINA MITCHELL JR ROOM: P201 Age: 36 Sex: M Admission Date: 11/09/2016 : 1980 Attending Physician: Patel Florence M.D. Admitting Physician: Patel Florence M.D. Primary Care Physician: Primary Care Physician No HISTORY AND PHYSICAL HISTORY OF PRESENT ILLNESS Dina is a 36 year old admitted to [address] [place] [address] with psychotic behavior. He is a poor historian so his history is taken from his chart. PAST MEDICAL HISTORY Nothing significant. PAST SURGICAL HISTORY Nothing reported. ALLERGIES Aspirin, Tylenol, ibuprofen. SOCIAL HISTORY Smokes 1/2 pack per day. Denies alcohol. Admits to using marijuana. FAMILY HISTORY Medically noncontributory. REVIEW OF SYSTEMS He does not answer questions appropriately. There were no reports of nausea, vomiting or diarrhea. He has had no cough or increased temperature. CURRENT MEDICATIONS 1. Cogentin 1 mg b.i.d. 2. Haldol 10 mg b.i.d. 3. Milk of Magnesia p.r.n. 4. Maalox p.r.n. PHYSICAL EXAMINATION GENERAL: Alert, well-nourished, in no apparent distress. VITAL SIGNS: Blood pressure 104/74, heart rate 80, respirations 16, temperature 98.6. WEIGHT: 153. HEIGHT: 5 feet 9 inches. SKIN: Warm and dry without rash or lesion. HEENT: Normocephalic. TMs not viewed. Oral and nasal passages clear. Conjunctivae clear. PERRLA. EOMs intact. NECK: Supple without lymphadenopathy or thyromegaly. HEART: Regular rate and rhythm without murmur. LUNGS: Clear. ABDOMEN: Soft, nontender. : Not done. Unit #: [id number] #: [id number] Patient: DINA MITCHELL JR EXTREMITIES: No evidence of cyanosis, clubbing or edema. Moves all without focal deficit. NEUROLOGICAL: Grossly within normal limits. Cranial Nerves: II: Visual mejia are intact. III, IV AND : Extraocular movements are intact. Pupils are equal, round and reactive to light. V: Facial sensation is grossly normal. VII: Facial movements and expression are normal. VIII: Auditory acuity grossly intact. IX, X: Uvula is midline. Phonation is normal. XI: Patient shrugs shoulders and turns head normally. XII: Tongue protrudes in the midline. Sensory and Motor Function: Sensory and motor sensation is grossly normal. Motor: moves all extremities well. Coordination: Gait is normal. Deep Tendon Reflexes: Intact. IMPRESSION Psychiatric admission. RECOMMENDATIONS PSYCHIATRIC: Per psychiatrist. MEDICAL: See no contraindication to participate in facility's activities. MEDICAL PROGNOSIS Good. MEDICAL CONDITION Stable. Dictated by... Beryl Gunn P.A.-C. for Marcus Villalobos/madyson TD: 11/10/2016 21:00 JOB #: [id number] HISTORY AND PHYSICAL Page 1 of 1 X Beryl Gunn X HISTORY AND PHYSICAL
--- NOTE | ~2016-11-09 | PN ---
Unit #: [id number] #: [id number] Patient: DINA MITCHELL JR [id number] [facility] [address] [place] [address] [id number] I MR#: [id number] NAME: DINA MITCHELL JR ROOM: P201 Age: 36 Sex: M Admission Date: 11/09/2016 : 1980 Attending Physician: Patel Florence M.D. Admitting Physician: Patel Florence M.D. Primary Care Physician: Primary Care Physician Neeta QIU PROGRESS NOTES DATE November 12, 2016 DISCUSSION Mr. Mitchell is a 36-year-old male, who was seen today and chart was reviewed and the case was discussed with the staff. He remains agitated, irritable, and disruptive, the patient has poor insight into his situation. Meanwhile, he has been refusing to take his medications and this has been resulting in poor prognosis. We will continue to encourage him to be compliant with the treatment recommendations and monitor his response and make further adjustments as needed. Dictated by... Marcus Peña/marsha TD: 11/13/2016 11:52 JOB #: [id number] [facility] PROGRESS NOTES Page 1 of 1 X Patel Florence MD PROGRESS NOTE
--- NOTE | ~2016-11-09 | PA ---
Unit #: [id number] #: [id number] Patient: DINA MORALES JR [id number] [facility] [address] [place] [address] [id number] I MR#: [id number] NAME: DINA MORALES JR ROOM: P201 Age: 36 Sex: M Admission Date: 11/09/2016 : 1980 Date of Assessment: Attending Physician: Patel Florence M.D. Admitting Physician: Patel Florence M.D. Primary Care Physician: Primary Care Physician No PSYCHIATRIC ASSESSMENT DATE OF SERVICE 11/10/2016. IDENTIFYING DATA Mr. Morales is a 36-year-old single disabled male, who is known to me from previous encounter and was recently discharged from the hospital, brought himself back to the hospital on a voluntary basis. CHIEF COMPLAINT "I got so much shit going on in my life right now, I need help." HISTORY OF PRESENT ILLNESS Mr. Morales is a 36-year-old male with history of mood disorder, psychosis, substance abuse, and some antisocial personality traits, who has been a frequent flyer to the inpatient hospitalization, and each time he comes in, he shows episodes of violent outbursts, physical aggression, verbally abusive language, using profanity, threatening, intimidating, and creating a lot of distress and chaos and ending up signing himself out against medical advice and then he never follows up with any treatment recommendations and as such has never been able to achieve any stability and now once again brought himself back to the hospital reporting increasing stress in his life and that he needs help "can't you see I need help. You don't even need to know what is going on with me. You should just be able to look at me and see I need some help. I just want to get to the unit and shower and go to sleep, that is all I want to do, but if I go to [facility] [facility] is going to be some shit because they have it out against me, they always say something off the wall to me to get me going and I have not had my medication for all I'm going through, I'm through some stuff. I've been homeless and I got evicted from my apartment that I lived in for years. I've been staying here and there on the streets and I'm hearing voices telling me to do all kind of shit and I'm not going to tell you what they say, you don't need to know." The patient reports that he is currently suicidal, but would not disclose any plan and was seen to be extremely agitated, irritable, hostile, and as such, a code had to be called as he was exhibiting belligerent and violent behavior on the intake and was transferred to the unit. SUBSTANCE ABUSE HISTORY The patient has a history of cannabis, spice, and cocaine abuse, but he always tries to mask and minimize his substance abuse issues. PAST PSYCHIATRIC HISTORY Unit #: [id number] #: [id number] Patient: DINA MORALES JR The patient has had a history of multiple and numerous inpatient psychiatric hospitalizations including being at [facility], at [facility], at [facility], and has a history of poor compliance with outpatient treatment recommendations and once again, has been noncompliant with medication and as such has been decompensating. PAST MEDICAL HISTORY No acute or chronic medical illnesses. ALLERGIES Tylenol, aspirin, and ibuprofen. PERSONAL AND SOCIAL HISTORY A 36-year-old male, who reports that he is single, unemployed, and disabled, and has poor social support system. MENTAL STATUS EXAMINATION Young male, who was casually dressed with fair personal hygiene, appears to be in no acute distress or discomfort. He was awake and alert on interaction with intact orientation to time, place, and person. His mood was anxious with a congruent affect. His speech was pressured and tangential. His thought processes were disorganized with some looseness of associations and flight of ideas and paranoid ideations and delusional behavior. He also reports having suicidal ideations, but denies any intent or plan. His insight and judgment remain significantly impaired. DIAGNOSTIC IMPRESSION Psychiatric: Schizoaffective disorder, bipolar type, most recent episode depressed, recurrent, moderate, with psychosis; cannabis abuse, moderate; and cocaine abuse, moderate. Medical: None. Stressors: Moderate psychosocial stressors. TREATMENT PLAN 1. The patient has presented with a history of mood disorder and substance abuse and has been decompensating and will need inpatient hospitalization for safety and stabilization. We will start him back on his home medications and we will monitor his response and make further adjustments as needed. 2. Supportive therapy was provided to the patient. 3. Safe, structured, and nourishing environment will be provided. ESTIMATED LENGTH OF STAY 4 to 5 days. ABILITY TO HELP SELF Limited. WILLINGNESS TO HELP SELF The patient appears to be willing to help self. STRENGTHS 1. Communicative. 2. Cooperative. PROBLEMS 1. Chronic dysphoric symptoms. 2. Poor social support system. Unit #: [id number] #: [id number] Patient: DINA MORALES JR DISCHARGE CRITERIA This will be contingent upon the patient's ability to show resolution of his depression and psychosis and agitation and aggression as well as his ability to stay safe to himself and others, particularly after discharge from the hospital. Dictated by... Marcus Peña/trish TD: 11/10/2016 17:47 JOB #: [id number] PSYCHIATRIC ASSESSMENT Page 1 of 1 X Patel Florence MD X PSYCHIATRIC ASSESSMENT
--- NOTE | ~2016-11-09 | PN ---
Unit #: [id number] #: [id number] Patient: DIAN MITCHELL JR [id number] [facility] [address] [place] [address] [id number] MR#: [id number] NAME: DINA MITCHELL JR ROOM: P201 Age: 36 Sex: M Admission Date: 11/09/2016 : 1980 Attending Physician: Patel Florence M.D. Admitting Physician: Patel Florence M.D. Primary Care Physician: Primary Care Physician Neeta QIU PROGRESS NOTES DATE 11/11/2016 DISCUSSION Mr. Mitchell is a 36-year-old, male who was seen today and chart was reviewed and case was discussed with the staff. He has been anxious, withdrawn though has not shown any agitation, irritability and has been rather cooperative with the treatment recommendations. He has been taking the medication and tolerating them fairly well with no reported side effects. MENTAL STATUS EXAM Young male who was casually dressed with fair personal hygiene, appears to be in no acute distress or discomfort. He was awake and alert with impaired attention and concentration. His mood was anxious with congruent affect. He denies any suicidal or homicidal ideation. His insight and judgement remains significantly impaired. TREATMENT PLAN 1. We will continue him on his current treatment protocol. We will monitor his response and make further adjustments as needed. 2. We will continue. .. Dictated by... Marcus Peña/ada TD: 11/13/2016 03:13 JOB #: [id number] Unit #: [id number] #: [id number] Patient: DINA MITCHELL JR [facility] PROGRESS NOTES Page 1 of 1 X Patel Florence MD PROGRESS NOTE
--- NOTE | ~2016-11-09 | DS ---
Unit #: [id number] #: [id number] Patient: DINA MITCHELL JR [address] [facility] [place] [address] [id number] I MR#: [id number] NAME: DINA MITCHELL JR ROOM: P201 Age: 36 Sex: M Admission Date: 11/09/2016 : 1980 Discharge Date: 11/12/2016 Attending Physician: Patel Florence M.D. Primary Care Physician: Primary Care Physician No DISCHARGE SUMMARY IDENTIFYING DATA Mr. Mitchell is a 36-year-old male who is a resident of [facility] and was self-referred to the hospital. DISCHARGE DIAGNOSIS PSYCHIATRIC 1. Schizoaffective disorder, bipolar type, most recent episode depressed recurrent, moderate, with psychosis. 2. Cocaine abuse moderate. MEDICAL None. STRESSORS Moderate psychosocial stressors. HISTORY OF PRESENT ILLNESS/PAST PSYCHIATRIC HISTORY/PAST MEDICAL HISTORY Please copy and paste from initial evaluation. HOSPITAL COURSE The patient was admitted to the adult psychiatric unit at [facility] and was oriented to the hospital environment. Routine p.r.n. medications were initiated, and he was started back on his home medications. Medications were adjusted and Zyprexa was started back. However, he was once again seen to be showing very negative and inappropriate attitude and behavior with hostility, verbally abusive language, profanity and being disrespectful referred to the staff, refusing to participate in treatment related activities and then he decided that he wanted to leave against medical advice and as such it was decided that he will be discharged home against medical advice. DISCHARGE CONDITION Stable. PROGNOSIS Guarded. Dictated by... Marcus Peña/ada Unit #: [id number] #: [id number] Patient: DINA MITCHELL JR TD: 12/01/2016 03:19 JOB #: [id number] DISCHARGE SUMMARY Page 1 of 1 X Patel Florence MD X DISCHARGE SUMMARY
[2016-11-12 14:07] LABS: URINE APPEARANCE CLEAR; URINE BILIRUBIN NEG (NEG); URINE BLOOD NEG (NEG); URINE COLOR YELLOW; URINE GLUCOSE NEG (NEG); URINE KETONE NEG (NEG); URINE LEUKOCYTE ESTERASE NEG (NEG); URINE NITRATE NEG (NEG); URINE PROTEIN NEG (NEG); URINE SPECIFIC GRAVITY 1.021 (1.003-1.035); URINE UROBILINOGEN 0.2 MG/DL (NEG)
[2016-11-12 15:24] LABS: AMPHETAMINE NEG (NEG); BARBITURATES NEG (NEG); BENZODIAZEPINES NEG (NEG); COCAINE NEG (NEG); MARIJUANA POS (NEG); OPIATES NEG (NEG); TRICYCLIC ANTIDEPRESSANTS NEG (NEG); U METHADONE NEG (NEG)
== END 2016-11-12 12:28 | disposition left against medical advice (07) | DRG 885 ==
LOC: P2S 23:32
PROVIDERS: Psychiatry & Neurology Psychiatry
DX: F25.0 Schizoaffective disorder, bipolar type (principal); F14.20 Cocaine dependence, uncomplicated; R45.851 Suicidal ideations; F12.20 Cannabis dependence, uncomplicated; Z88.6 Allergy status to analgesic agent; Z88.8 Allergy status to other drugs, medicaments and biological substances; F17.210 Nicotine dependence, cigarettes, uncomplicated
CPT/HCPCS: 80307; 81003

== ENCOUNTER 2016-11-13 23:00 | Inpatient (IN) | payer OTHER ==
[~2016-11-13] VITALS: Ht 175.3 cm; Wt 77.1 kg
--- NOTE | ~2016-11-13 | HP ---
Unit #: [id number] #: [id number] Patient: DINA MITCHELL JR [id number] [facility] [address] [place] [address] [id number] MR#: [id number] NAME: DINA MITCHELL JR ROOM: P203 Age: 36 Sex: M Admission Date: 11/14/2016 : 1980 Attending Physician: Patel Florence M.D. Admitting Physician: Patel Florence M.D. Primary Care Physician: Primary Care Physician No HISTORY AND PHYSICAL NOTE Dina is a 36-year-old male admitted on 11/14/2016. He had a recent admission on 11/10/2016. I reviewed the history and physical from that admission, and there are no changes. Dictated by... Khanh Diaz TD: 11/14/2016 11:39 JOB #: [id number] HISTORY AND PHYSICAL Page 1 of 1 X KEYSHA MEDELLIN APRN HISTORY AND PHYSICAL
--- NOTE | ~2016-11-13 | PN ---
Unit #: [id number] #: [id number] Patient: DINA MITCHELL JR [id number] [facility] [address] [place] [address] [id number] I MR#: [id number] NAME: DINA MITCHELL JR ROOM: P115 Age: 36 Sex: M Admission Date: 11/14/2016 : 1980 Attending Physician: Patel Florence M.D. Admitting Physician: Patel Florence M.D. Primary Care Physician: Primary Care Physician Neeta QIU PROGRESS NOTES DATE 11/15/2016 DISCUSSION Mr. Mitchell is a 36-year-old male who was seen today and chart was reviewed and case was discussed with the staff. He has been anxious, withdrawn and rather seclusive to himself. Meanwhile, he has been cooperative with treatment recommendations and has been taking medications and tolerating them fairly well with ____ side effects. MENTAL STATUS EXAMINATION Young male who was casually dressed with fair personal hygiene and appears to be in no acute distress or discomfort. He was awake and alert with impaired attention and concentration. His mood was anxious and depressed with congruent affect. He denies any suicidal or homicidal ideations. His insight and judgement remains slightly impaired. TREATMENT PLAN 1. Will continue on his current medications and treatment protocol. Will monitor his response to the medications and make further adjustments as needed. 2. Will continue to follow up. Dictated by... Marcus Peña/madyson TD: 11/15/2016 15:13 JOB #: [id number] Unit #: [id number] #: [id number] Patient: DINA MITCHELL JR LAZARUS PROGRESS NOTES Page 1 of 1 X Patel Florence MD PROGRESS NOTE
--- NOTE | ~2016-11-13 | PA ---
Unit #: [id number] #: [id number] Patient: DINA MORALES JR [id number] [facility] [address] [place] [address] [id number] I MR#: [id number] NAME: DINA MORALES JR ROOM: P114 Age: 36 Sex: M Admission Date: 11/14/2016 : 1980 Date of Assessment: Attending Physician: Patel Florence M.D. Admitting Physician: Patel Florence M.D. Primary Care Physician: Primary Care Physician No PSYCHIATRIC ASSESSMENT IDENTIFYING DATA Mr. Morales is a 36-year-old, single, male, who is a resident of [place], [place], and was just discharged from my care a couple of days ago after he was seen to be agitated, angry, in a typical pattern decided to leave against medical advice and now once again brought himself back to the hospital on a voluntary basis. CHIEF COMPLAINT "I'm having negative thoughts, I don't know what I might do." HISTORY OF PRESENT ILLNESS Mr. Morales is a 36-year-old male, who brought himself to the hospital after he was just here a couple of days ago and staff called me stating the patient was aggressive, hostile and was demanding to leave against medical advice, which has been a typical pattern on pretty much every hospitalization and as such, it was decided to leave against medical advice and now brought himself back to the hospital stating that he was given a medication that was having him twitch, having mood swings, and migraine headaches and reports negative thoughts and that he does not know what he might do and was verbally aggressive and reports that he is going through a lot and he needs some help and reports auditory and visual hallucinations, was rambling and combative in the assessment and reports that he feels like he needs medication adjustment, was talking about the government and them taking everything and was seen to be acutely psychotic, agitated, combative and hostile and making statement that he does not know what he might do and that he believed that me as a doctor is trying to kill him by changing his medication. He is delusional and kept talking about the government cheating him and his family and reports ongoing anger issues and reports that he has come in for help, so he will not hurt anyone and was talking nonsensical and would not cooperate with assessment; however, he was seen to be a significant threat to himself and others, and as such, recommendation for inpatient level of care for safety and stabilization was made and the patient was transferred to us. SUBSTANCE ABUSE HISTORY The patient has a history of cannabis, spice and cocaine abuse. PAST PSYCHIATRIC HISTORY The patient has had a history of multiple inpatient psychiatric hospitalizations at [facility] in addition to being at [facility] and [facility] and has had outpatient treatment through [facility] and has extensive history of poor compliance with all form of Unit #: [id number] #: [id number] Patient: DINA MORALES JR treatments including outpatient followup as well as medications. PAST MEDICAL HISTORY No acute or chronic medical illnesses. ALLERGIES Acetaminophen, aspirin, and ibuprofen. PERSONAL AND SOCIAL HISTORY A 36-year-old male, who reports that he is single, unemployed, and homeless and has poor social support system. MENTAL STATUS EXAMINATION Young male, who was casually dressed with fair personal hygiene, appears to be in no acute distress or discomfort. He was awake and alert with impaired attention and concentration. His mood was anxious and depressed with a congruent affect. His speech was slow and restricted in content. His thought processes were disorganized with some looseness of associations and flight of ideas and paranoid ideations and delusional behavior. His insight and judgment remain significantly impaired. DIAGNOSTIC IMPRESSION Psychiatric: Schizoaffective disorder, bipolar type, most recent episode depressed, recurrent, moderate, without psychotic features; cannabis abuse, moderate; spice abuse, moderate. Medical: None. Stressors: Moderate psychosocial stressors. TREATMENT PLAN 1. The patient has presented with a history of mood disorder, and has been decompensating and will need inpatient hospitalization for safety and stabilization. We will start him back on his home medications. We will monitor his response and make further adjustments as needed. 2. Supportive therapy was provided to the patient. ESTIMATED LENGTH OF STAY 4 to 5 days. ABILITY TO HELP SELF Limited. WILLINGNESS TO HELP SELF The patient appears to be willing to help self. STRENGTHS 1. Communicative. 2. Cooperative. PROBLEMS 1. Chronic dysphoric symptoms. 2. Poor social support system. DISCHARGE CRITERIA This will be contingent upon the patient's ability to show resolution of his depression and anxiety as well as his ability to stay safe to himself, particularly after discharge from the hospital. Unit #: [id number] #: [id number] Patient: STEPHENDINA Dictated by... Marcus Peña/trish TD: 11/14/2016 07:57 JOB #: [id number] PSYCHIATRIC ASSESSMENT Page 1 of 1 X Patel Florence MD X PSYCHIATRIC ASSESSMENT
--- NOTE | ~2016-11-13 | DS ---
Unit #: [id number] #: [id number] Patient: DINA MORALES JR [id number] [facility] [address] [place] [address] [id number] MR#: [id number] NAME: DINA MORALES JR ROOM: [facility] Age: 36 Sex: M Admission Date: 11/14/2016 : 1980 Discharge Date: 11/15/2016 Attending Physician: Patel Florence M.D. Primary Care Physician: Primary Care Physician No DISCHARGE SUMMARY IDENTIFYING DATA Mr. Morales is a 36-year-old male, who is a resident of [place], [place], and was self-referred to the hospital. DISCHARGE DIAGNOSES Psychiatric: Schizoaffective disorder, bipolar type, most recent episode depressed, recurrent, moderate, without psychotic features; cocaine dependence, moderate. Medical: None. Stressors: Mild psychosocial stressors. HISTORY OF PRESENT ILLNESS Please see initial psychiatric evaluation for details. PAST PSYCHIATRIC HISTORY Please see initial psychiatric evaluation for details. PAST MEDICAL HISTORY Please see initial psychiatric evaluation for details. HOSPITAL COURSE The patient was admitted to the adult psychiatric unit at [facility] and was oriented to the hospital environment. Routine p.r.n. medications were initiated and he was started back on his home medication and medications were adjusted. However, he once again was seen to be showing very poor insight into his situation and was agitated, aggressive, rude, and inappropriate and refused to cooperate with treatment recommendation and once again decided that he wanted to leave against medical advice and was denying any suicidal ideations, intent, or plan and was meeting criteria for involuntary psychiatric hospitalization and as such, it was decided that he will be discharged home against medical advice. DISCHARGE CONDITION Stable. PROGNOSIS Guarded. Dictated by... Patel Florence M.D. IAA/modl Unit #: [id number] #: [id number] Patient: DINA MORALES JR TD: 12/13/2016 07:50 JOB #: [id number] DISCHARGE SUMMARY Page 1 of 1 X Patel Florence MD DISCHARGE SUMMARY
== END 2016-11-15 20:27 | disposition home or self-care (01) | DRG 885 ==
LOC: P1S 11-14 02:32 → P2S 11-14 02:32 → P1S 11-14 20:48
DX: F25.0 Schizoaffective disorder, bipolar type (principal); Z59.0 Homelessness; F12.10 Cannabis abuse, uncomplicated

== ENCOUNTER 2016-11-18 18:00 | Inpatient (IN) | payer OTHER ==
[~2016-11-18] VITALS: Ht 175.3 cm; Wt 74.8 kg
--- NOTE | ~2016-11-18 | HP ---
Unit #: [id number] #: [id number] Patient: DINA MITCHELL JR [id number] [place] [address] [id number] MR#: [id number] NAME: DINA MITCHELL JR ROOM: P115 Age: 36 Sex: M Admission Date: 11/18/2016 : 1980 Attending Physician: Patel Florence M.D. Admitting Physician: Patel Florence M.D. Primary Care Physician: Primary Care Physician No HISTORY AND PHYSICAL HISTORY OF PRESENT ILLNESS The patient is a 36-year-old male with history of being aggressive, hostile. PAST MEDICAL HISTORY None. PAST SURGICAL HISTORY None. SOCIAL HISTORY Negative. ALLERGIES Tylenol, aspirin and Motrin. FAMILY HISTORY Noncontributory. REVIEW OF SYSTEMS CONSTITUTIONAL: No fever or chills. HEENT: Denies any sore throat, ear pain or runny nose. CARDIOVASCULAR: Denies chest pain, irregular heart rhythm or palpitations. CHEST: Denies shortness of breath or cough. No hemoptysis. GASTROINTESTINAL: Denies nausea, vomiting, diarrhea or chronic constipation. ENDOCRINE: Denies history of increased thirst or urination. No recent significant weight loss or gain. GENITOURINARY: Denies dysuria, frequency, or hematuria. SKIN: Denies any rashes. HEMATOLOGIC: Denies history of increased bleeding or bruising. MUSCULOSKELETAL: Denies any hot, swollen joints. No generalized muscle pain. NEUROLOGIC: Denies problems with vision or speech. No frequent, severe headaches. No numbness, tingling or weakness in any extremities. Denies loss of bladder or bowel control. CURRENT MEDICATIONS Zyprexa 10 mg p.o. twice daily. Unit #: [id number] #: [id number] Patient: DINA MITCHELL JR PHYSICAL EXAMINATION GENERAL: Alert, oriented in no acute distress lying in bed. VITAL SIGNS: Blood pressure 128/85, heart rate 120, respiration 16. HEIGHT: 5 feet 9 inches WEIGHT: 165 pounds SKIN: Warm and dry without rash. Scar to the midline abdomen, bruising to left knee, tattoos to bilateral upper arms and bilateral hands. HEENT: Normocephalic. TMs not viewed. Oral and nasal passages clear. Conjunctivae clear. PERRLA. EOMs intact. NECK: Supple without lymphadenopathy or thyromegaly. HEART: Regular rate and rhythm without murmur. LUNGS: Clear. ABDOMEN: Soft, nontender, without masses or hepatosplenomegaly. : Not done. EXTREMITIES: No evidence of cyanosis, clubbing or edema. Moves all without focal deficit. NEUROLOGICAL: Grossly within normal limits. Cranial Nerves: II: Visual mejia are intact. III, IV AND : Extraocular movements are intact. Pupils are equal, round and reactive to light. V: Facial sensation is grossly normal. VII: Facial movements and expression are normal. VIII: Auditory acuity grossly intact. IX, X: Uvula is midline. Phonation is normal. XI: Patient shrugs shoulders and turns head normally. XII: Tongue protrudes in the midline. Sensory and Motor Function: Sensory and motor sensation is grossly normal. Motor: moves all extremities well. Coordination: Gait is normal. Deep Tendon Reflexes: Intact. IMPRESSION Psychiatric admission RECOMMENDATIONS Psychiatric, per psychiatrist. MEDICAL: I see no contraindications to participating in facility's activities. MEDICAL PROGNOSIS Good. Dictated by... Khanh Jaquez/ada TD: 11/20/2016 03:40 JOB #: [id number] Unit #: [id number] #: [id number] Patient: DINA MITCHELL JR HISTORY AND PHYSICAL Page 1 of X Dayanna Woods APR X HISTORY AND PHYSICAL
--- NOTE | ~2016-11-18 | DS ---
Unit #: [id number] #: [id number] Patient: DINA MORALES JR [id number] [facility] [address] [place] [address] [id number] MR#: [id number] NAME: DINA MORALES JR ROOM: [facility] Age: 36 Sex: M Admission Date: 11/18/2016 : 1980 Discharge Date: 11/20/2016 Attending Physician: Patel Florence M.D. Primary Care Physician: Primary Care Physician No DISCHARGE SUMMARY IDENTIFYING DATA Mr. Morales is a 36-year-old single male, who is very well known to us from previous encounters, was self-referred to the hospital. DISCHARGE DIAGNOSES Psychiatric: Schizoaffective disorder, bipolar type, most recent episode depressed, recurrent, moderate, with psychotic features; cannabis abuse, moderate. Medical: None. Stressors: Moderate psychosocial stressors. HISTORY OF PRESENT ILLNESS Please see initial psychiatric evaluation for details. PAST PSYCHIATRIC HISTORY Please see initial psychiatric evaluation for details. PAST MEDICAL HISTORY Please see initial psychiatric evaluation for details. HOSPITAL COURSE The patient was admitted to the adult psychiatric unit at [facility] and it was noticed that he has been a frequent flyer to inpatient hospitalization and was started back on his home medication and watch was initiated and the patient has been presenting stating that he is suicidal and manipulating his system, however, staffs once again were complaining of his poor attitude as he has been threatening staff members, throwing things at them, cursing and yelling them, calling them names and being verbally abusive, and using profanity and refusing to participate in any forms of treatment including any therapy groups and was not showing any motivation towards treatment and as such, it was decided that he will be discharged from the hospital. We will recommend ongoing outpatient psychiatric treatment; however, he has feeling that he is not going to follow up on any treatment recommendations outside of the hospital and as such, will remain at poor prognosis. DISCHARGE MEDICATIONS Zyprexa 10 mg b.i.d. DISCHARGE CONDITION Stable. Unit #: [id number] #: [id number] Patient: DINA MORALES JR PROGNOSIS Guarded. Dictated by... Patel Florence M.D. IAA/modl TD: 11/20/2016 23:04 JOB #: [id number] DISCHARGE SUMMARY Page 1 of 1 X Patel Florence MD DISCHARGE SUMMARY
--- NOTE | ~2016-11-18 | PA ---
Unit #: [id number] #: [id number] Patient: DINA MORALES JR [id number] [facility] [address] [place] [address] [id number] MR#: [id number] NAME: DINA MORALES JR ROOM: P115 Age: 36 Sex: M Admission Date: 11/18/2016 : 1980 Date of Assessment: Attending Physician: Patel Florence M.D. Admitting Physician: Patel Florence M.D. PSYCHIATRIC ASSESSMENT DATE OF SERVICE 11/19/2016. IDENTIFYING DATA Mr. Morales is a 36-year-old, single, male who is a resident of [place], [place] and is known to me from previous encounter, was just discharged from my care 3 days ago against medical advice and this is the third or fourth hospitalization back to back as he comes to the hospital signs himself out against medical advice after being here couple of days and then brings himself right back to the hospital, once again brought himself to the hospital. CHIEF COMPLAINT "I'm miserable. My situation is worse." HISTORY OF PRESENT ILLNESS Mr. Morales is a 36-year-old male who was once again brought himself to the hospital after signing out against medical advice as he usually comes in and is very agitated, irritable, verbally abusive using profanity of ending everyone being inappropriate causing chaos and disturbance on the unit, and being hostile and belligerent, and refusing to cooperative with treatment recommendations and then signing out against medical advice and then coming right back to the hospital once again brought himself to the hospital stating "I'm miserable. My situation is worse. I left early last time, so I did not hurt anyone. I did not like once out, that is nasty there. I'm going through a whole lot mood swings every minute. I cannot explain it. You won't understand. I need help." The patient reports that he is on disability, has poor social support system, and reports auditory hallucinations stating the voices telling to hurt himself and as such, recommendation for inpatient level of care for safety and stabilization was made and the patient was transferred to us. SUBSTANCE ABUSE HISTORY The patient has history of spice and cocaine and cannabis abuse and using spice has been his drug of choice. PAST PSYCHIATRIC HISTORY The patient has had history of numerous multiple inpatient psychiatric hospitalizations including being at [facility], and has been diagnosed and treated for schizoaffective disorder and is supposed to be on Zyprexa, but has history of poor compliance with all form of treatments including outpatient followup as well as psychotropic medications. Unit #: [id number] #: [id number] Patient: DINA MORALES JR PAST MEDICAL HISTORY The patient's medical history is insignificant. ALLERGIES Tylenol. PERSONAL AND SOCIAL HISTORY A 36-year-old male who reports that he is single, unemployed, and essentially homeless and has poor social support system. MENTAL STATUS EXAMINATION Young male who was casually dressed with fair personal hygiene, appears to be in no acute distress or discomfort. He was awake and alert with impaired attention and concentration. His mood was anxious and depressed with a congruent affect. His speech was slow and restricted in content. His thought processes were disorganized with some looseness of associations and flight of ideas and paranoid ideations and auditory hallucinations and suicidal ideations. His insight and judgment remain significantly impaired. DIAGNOSTIC IMPRESSION Psychiatric: Schizoaffective disorder, bipolar type, most recent episode depressed, recurrent, moderate, with psychosis; cannabis dependence, moderate; spice abuse, moderate. Medical: None. Stressors: Moderate psychosocial stressors. TREATMENT PLAN 1. The patient has presented with history of mood disorder and substance abuse. We will recommend inpatient hospitalization for safety and stabilization. We will start him back on his home medications. We will adjust the medications and monitor response. 2. Supportive therapy was provided to the patient. ESTIMATED LENGTH OF STAY 5 to 7 days. ABILITY TO HELP SELF Limited. WILLINGNESS TO HELP SELF The patient appears to be willing to help self. STRENGTHS 1. Communicative. 2. Cooperative. PROBLEMS 1. Chronic dysphoric symptoms. 2. Chronic chemical dependency. 3. Poor social support system. DISCHARGE CRITERIA This will be contingent upon the patient's ability to show resolution of his depression and psychosis and his ability to stay safe to himself, particularly after discharge from the hospital. Unit #: [id number] #: [id number] Patient: DINA MORALES JR Dictated by... Patel Florence M.D. BEAR/trish TD: 11/19/2016 14:08 JOB #: [id number] PSYCHIATRIC ASSESSMENT Page 1 of 1 X Patel Florence MD PSYCHIATRIC ASSESSMENT
== END 2016-11-20 10:58 | disposition home or self-care (01) | DRG 885 ==
LOC: P1S 19:34
DX: F25.0 Schizoaffective disorder, bipolar type (principal); F31.32 Bipolar disorder, current episode depressed, moderate; F29 Unspecified psychosis not due to a substance or known physiological condition; F10.20 Alcohol dependence, uncomplicated; F19.10 Other psychoactive substance abuse, uncomplicated
CPT/HCPCS: J1630; J2060; J3230

== ENCOUNTER 2016-11-21 12:56 | Inpatient (IN) | payer OTHER ==
[~2016-11-21] VITALS: Ht 175.3 cm; Wt 74.8 kg
--- NOTE | ~2016-11-21 | DS ---
Unit #: [id number] #: [id number] Patient: DINA MITCHELL JR [id number] [facility] [address] [place] [address] [id number] I MR#: [id number] NAME: DINA MITCHELL JR ROOM: [facility] Age: 36 Sex: M Admission Date: 11/21/2016 : 1980 Discharge Date: 11/22/2016 Attending Physician: Patel Florence M.D. Primary Care Physician: Primary Care Physician No DISCHARGE SUMMARY IDENTIFYING DATA Mr. Mitchell is a 36-year-old male, who is very well known to us from previous multiple encounters and was self-referred to the hospital. DISCHARGE DIAGNOSES Psychiatric: Schizoaffective disorder, bipolar type, most recent episode depressed, recurrent, moderate, with psychosis; cocaine dependence, moderate. Medical: None. Stressors: Moderate psychosocial stressors. HISTORY OF PRESENT ILLNESS Please see initial psychiatric evaluation for details. PAST PSYCHIATRIC HISTORY Please see initial psychiatric evaluation for details. PAST MEDICAL HISTORY Please see initial psychiatric evaluation for details. HOSPITAL COURSE The patient was admitted to the adult psychiatric unit at [facility] and was oriented to the hospital environment. Routine p.r.n. medications were initiated and started back on his home medications. Medications were adjusted and he was closely monitored. However, soon afterwards, he once again decided that he wanted to leave against medical advice and was denying any suicidal ideations, intent, or plan and as such, it was decided that he will be discharged home against medical advice and will also remain on outpatient psychiatric treatment. DISCHARGE CONDITION Stable. PROGNOSIS Fair. Dictated by... Marcus Peña/trish TD: 12/13/2016 07:24 Unit #: [id number] #: [id number] Patient: DINA MITCHELL JR JOB #: [id number] DISCHARGE SUMMARY Page 1 of 1 X Patel Florence MD X DISCHARGE SUMMARY
--- NOTE | ~2016-11-21 | HP ---
Unit #: [id number] #: [id number] Patient: DINA MITCHELL JR [id number] [facility] [address] [place] [address] [id number] MR#: [id number] NAME: DINA MITCHELL JR ROOM: P114 Age: 36 Sex: M Admission Date: 11/21/2016 : 1980 Attending Physician: Patel Florence M.D. Admitting Physician: Patel Florence M.D. Primary Care Physician: Primary Care Physician No HISTORY AND PHYSICAL Dina is a 36-year-old male admitted on 11/21/[address] [place] [address] for auditory hallucinations that are telling him to kill himself. He has multiple previous admissions for the same. Recently he was admitted on 11/18/2016. I have reviewed the history and physical from that admission and there are no changes. Dictated by... Khanh Diaz/ada TD: 11/21/2016 20:41 JOB #: [id number] HISTORY AND PHYSICAL Page 1 of 1 X KEYSHA MEDELLIN APRN HISTORY AND PHYSICAL
--- NOTE | ~2016-11-21 | PA ---
Unit #: [id number] #: [id number] Patient: DINA MORALES JR [id number] [facility] [address] [place] [address] [id number] MR#: [id number] NAME: DINA MORALES JR ROOM: P114 Age: 36 Sex: M Admission Date: 11/21/2016 : 1980 Date of Assessment: Attending Physician: Patel Florence M.D. Admitting Physician: Patel Florence M.D. Primary Care Physician: Primary Care Physician No PSYCHIATRIC ASSESSMENT IDENTIFYING DATA Mr. Morales is a 36-year-old single male, who is a resident of [place], [place], and has been a frequent flyer and has been repeatedly coming himself to the hospital and once again brought himself to the hospital on a voluntary basis. CHIEF COMPLAINT "I'm feeling suicidal and homicidal." HISTORY OF PRESENT ILLNESS Mr. Morales is a 36-year-old male with history of mood disorder, personality disorder, who has been repeatedly coming to the hospital and then causes a lot of disturbance on the unit, particularly shows verbal and physical aggression, has been rude, inappropriate, and refused to participate in treatment related activities, crushes the staff, threw things at the staff, and then gets up and leaves against medical advice and turned around and comes right back in reports that he is suicidal and then decided he wants to leave and then he was allowed to let go from the admission without being admitted and then he comes right back and repeats the full story all over again and once again brought himself to the hospital, stating that he has been feeling suicidal and homicidal and has been having mood swings, and every time, his story is different as a couple of days ago, he was reporting that he was suicidal because he has been hearing voices and now he stated "I'm getting to the point, I'm sick of life, I'm not letting you know what really is going on." He was seen to be once again very agitated, irritable, and refusing to give details of his presentation, but stating that he has been feeling suicidal and homicidal and therefore, recommendation for inpatient level of care for safety and stabilization was made and the patient was transferred to us. It was noticed that the patient leaves the hospital against medical advice. He does not get his prescription filled, never followed up with any outpatient treatment program and therefore, does not show any interest in his treatment and then he comes to the hospital. When he comes to the hospital, all his interested is eating and sleeping and does not participate in any treatment related activities and as such, has been in perpetual cycle of inpatient hospitalizations without getting much benefit out of the hospitalization due to his lack of compliance with treatment recommendations. SUBSTANCE ABUSE HISTORY The patient has history of cannabis, spice, and cocaine abuse, but always Unit #: [id number] #: [id number] Patient: DINA MORALES JR denies about his substance abuse issues and gets offended when questioned about that. PAST PSYCHIATRIC HISTORY The patient has a history of numerous inpatient psychiatric hospitalizations including being at [facility], and has had outpatient treatment in the past as well. Review of the medical records indicates that he is supposed to be on Zyprexa, but has been noncompliant with medications. PAST MEDICAL HISTORY No acute or chronic medical illnesses. ALLERGIES Acetaminophen, aspirin, and ibuprofen. PERSONAL AND SOCIAL HISTORY A 36-year-old male, who reports that he is single, unemployed, and essentially homeless and has poor social support system. MENTAL STATUS EXAMINATION Young male, who was casually dressed. Fair personal hygiene, appears to be in no acute distress or discomfort. He was awake and alert with impaired attention and concentration. His mood was anxious and depressed with a congruent affect. His speech was slow and restricted in content. His thought processes were disorganized, some looseness of associations and flight of ideas and paranoid ideations and suicidal and vague homicidal ideations. His insight and judgment remained significantly impaired. DIAGNOSTIC IMPRESSION Psychiatric: Schizoaffective disorder, bipolar type, most recent episode depressed, recurrent, moderate, without psychotic features; cocaine abuse, moderate; cannabis abuse, moderate. Medical: None. Stressors: Moderate psychosocial stressors. TREATMENT PLAN 1. The patient has presented with history of mood disorder and has been decompensating and will need inpatient hospitalization for safety and stabilization. We will start him back on his home medications. We will adjust the medications and monitor response. 2. Supportive therapy was provided to the patient. 3. Safe, structured, and nourishing environment will be reported. ESTIMATED LENGTH OF STAY 5 to 7 days. ABILITY TO HELP SELF Limited. WILLINGNESS TO HELP SELF The patient appears to be willing to help self. STRENGTHS 1. Communicative. 2. Cooperative. PROBLEMS Unit #: [id number] #: [id number] Patient: DINA MORALES JR 1. Chronic dysphoric symptoms. 2. Poor social support system. DISCHARGE CRITERIA This will be contingent upon the patient's ability to show resolution of his depression, anxiety, and his ability to stay safe to himself, particularly after discharge from the hospital. Dictated by... Patel Florence M.D. BEAR/trish TD: 11/22/2016 09:50 JOB #: [id number] PSYCHIATRIC ASSESSMENT Page 1 of 1 X Patel Florence MD PSYCHIATRIC ASSESSMENT
--- NOTE | ~2016-11-21 | PN ---
Unit #: [id number] #: [id number] Patient: DINA MORALES JR [id number] [facility] [address] [place] [address] [id number] MR#: [id number] NAME: DINA MORALES JR ROOM: P114 Age: 36 Sex: M Admission Date: 11/21/2016 : 1980 Attending Physician: Patel Florence M.D. Admitting Physician: Patel Florence M.D. Primary Care Physician: Primary Care Physician Neeta ROJAS NOTES DATE OF SERVICE 11/22/2016 DISCUSSION Mr. Morales is a 36-year-old male who was seen today. Chart was reviewed and case was discussed with the staff. He has been anxious and withdrawn though has not shown any agitation, irritability, or behavioral problems and has been cooperative with the treatment recommendations and has been taking the medications and tolerating them fairly well with no reported side effects. MENTAL STATUS EXAMINATION Young male who is casually dressed with fair personal hygiene and appears to be in no acute distress or discomfort. The patient was awake and alert with impaired attention and concentration. His mood is anxious with congruent affect. He denies any suicidal or homicidal ideations and also denies any auditory or visual hallucinations. His insight and judgment remain slightly impaired. TREATMENT PLAN 1. We will continue him on his current medications and treatment protocol. We will monitor his response to the medications and make further adjustments as needed. 2. We will continue to follow up. Dictated by... Patel Florence M.D. IAA/elysiag TD: 11/22/2016 08:34 JOB #: [id number] Unit #: [id number] #: [id number] Patient: DINA MORALES JR LAZARUS PROGRESS NOTES Page 1 of 1 X Patel Florence MD X PROGRESS NOTE
== END 2016-11-22 08:25 | disposition home or self-care (01) | DRG 885 ==
LOC: P1S 14:16
DX: F25.0 Schizoaffective disorder, bipolar type (principal)